=== PATIENT | male | born 1980 | race Hispanic/Latino ===

== ENCOUNTER 2025-01-01 17:08 | Emergency (ER) | payer MEDICARE ==
[2025-01-01] MEDS ORDERED: Boostrix 0.5 ML (Tdap) VIAL (>/=7 yrs of age) ONE (17:26)
[2025-01-01] MEDS ORDERED: Bacitracin 1 PK ONE (17:26)
[2025-01-01] MEDS ORDERED: Lidocaine 1% (PF) 30 ML VIAL ONE (17:26)
== END 2025-01-01 18:05 | disposition home or self-care (01) ==
LOC: NAV ERS 17:08
DX: S01.81XA Laceration without foreign body of other part of head, initial encounter (principal); Z23 Encounter for immunization; W19.XXXA Unspecified fall, initial encounter
CPT/HCPCS: 12011; 90471; 90715; J2003